=== PATIENT | male | born 1960 | race Caucasian/White ===

== ENCOUNTER 2018-08-03 03:08 | Emergency (ER) | payer OTHER ==
[~2018-08-03] VITALS: Ht 185.4 cm; Wt 80.3 kg
[~2018-08-03 03:08] MED LIST: IBUP400 PO; Percocet 5-3251 EACH PO
[2018-08-03] MEDS ORDERED: Norco 7.5-3251 EACH PO (03:14)
== END 2018-08-03 06:10 | disposition home or self-care (01) ==
LOC: ER 03:08
DX: M54.5 Low back pain (principal); F17.210 Nicotine dependence, cigarettes, uncomplicated; Z87.442 Personal history of urinary calculi; Z88.5 Allergy status to narcotic agent; Z91.030 Bee allergy status; Z79.899 Other long term (current) drug therapy
CPT/HCPCS: 72100; 96372; 99283-25; A9270-GY; J1170

== ENCOUNTER 2019-01-24 09:49 | Day surgery (SDC) | payer OTHER ==
[~2019-01-24] VITALS: Ht 188 cm; Wt 81.2 kg
[~2019-01-24 09:49] MED LIST changes: +ALBU90OI INH; +MONT10T PO; +Norco 7.5-3251 EACH PO
[2019-01-24] MEDS ORDERED: Neurontin400 MG (10:59)
== END 2019-01-24 14:00 | disposition home or self-care (01) ==
LOC: ORSCSDS 09:49
PROVIDERS: Surgery
PROC: 0DBK8ZX Excision of Ascending Colon, Via Natural or Artificial Opening Endoscopic, Diagnostic (ICD-10-PCS; principal; 2019-01-24 11:15)
PROC: 0DBL8ZX Excision of Transverse Colon, Via Natural or Artificial Opening Endoscopic, Diagnostic (ICD-10-PCS; principal; 2019-01-24 11:15)
PROC: 0DBH8ZX Excision of Cecum, Via Natural or Artificial Opening Endoscopic, Diagnostic (ICD-10-PCS; principal; 2019-01-24 11:15)
PROC: 0DBM8ZX Excision of Descending Colon, Via Natural or Artificial Opening Endoscopic, Diagnostic (ICD-10-PCS; principal; 2019-01-24 11:15)
PROC: 0DBP8ZX Excision of Rectum, Via Natural or Artificial Opening Endoscopic, Diagnostic (ICD-10-PCS; principal; 2019-01-24 11:15)
DX: Z85.038 Personal history of other malignant neoplasm of large intestine (principal); D12.8 Benign neoplasm of rectum; D12.2 Benign neoplasm of ascending colon; D12.0 Benign neoplasm of cecum; D12.3 Benign neoplasm of transverse colon; D12.4 Benign neoplasm of descending colon; Z87.891 Personal history of nicotine dependence; Z79.899 Other long term (current) drug therapy
CPT/HCPCS: 88305; J2704; J7120

== ENCOUNTER → 2020-04-30 | Outpatient (CLI) | payer OTHER ==
[~2020-04-30] MED LIST changes: +Neurontin400 MG
== END ==
LOC: PLD 07:57 → LAB SHORT 07:57
DX: C44.311 Basal cell carcinoma of skin of nose (principal)
CPT/HCPCS: 88305

== ENCOUNTER 2021-01-08 19:59 | Emergency (ER) | payer OTHER ==
[~2021-01-08] VITALS: Ht 185.4 cm; Wt 83.9 kg
[2021-01-08] MEDS ORDERED: Cymbalta20 MG (20:43)
== END 2021-01-08 22:50 | disposition home or self-care (01) ==
LOC: ER 19:59
DX: S06.9X1A Unspecified intracranial injury with loss of consciousness of 30 minutes or less, initial encounter (principal); S50.312A Abrasion of left elbow, initial encounter; T14.8XXA Other injury of unspecified body region, initial encounter; M79.642 Pain in left hand; F17.210 Nicotine dependence, cigarettes, uncomplicated; Z91.030 Bee allergy status; Z88.5 Allergy status to narcotic agent; Z79.899 Other long term (current) drug therapy; W22.8XXA Striking against or struck by other objects, initial encounter
CPT/HCPCS: 70450; 90471; 90714; 93005; 93010; 96374-59; 99284-25; A9270; J1885

== ENCOUNTER → 2023-04-27 | Outpatient (CLI) | payer OTHER ==
[~2023-04-27] MED LIST changes: +Cymbalta20 MG
== END ==
LOC: LAB 12:47 → LAB SHORT 12:47
DX: L21.8 Other seborrheic dermatitis (principal); L08.9 Local infection of the skin and subcutaneous tissue, unspecified
CPT/HCPCS: 87070; 87077; 87186; 87205

== ENCOUNTER 2024-11-09 18:19 | Inpatient (IN) | payer MEDICARE, OTHER ==
[~2024-11-09] VITALS: Ht 182.9 cm; Wt 98.7 kg
[~2024-11-09 18:19] MED LIST changes: +ATOR40TA PO; +B-121000 MC7 PO; +FOLI1 PO; +GABA300 PO; +LIDO700A20 TOP; +LOSA25 PO; +NAPR500 PO
[2024-11-09] MEDS ORDERED: NS 1,000 ML IV SCH ×3 (18:30→23:10)
[2024-11-09] MEDS ORDERED: Piperacillin/Tazobactam Sod 4.5 GM in NS 100 ML IV ONE (18:45)
[2024-11-09] MEDS ORDERED: Vancomycin (Pharmacy Consult) IV PRN (18:45)
[2024-11-09 18:49] LABS: Hematocrit 49.8 % (37.0-53.0); Hemoglobin 16.3 g/dL (13.5-17.5); Mean Corpuscular HGB Conc 32.7 g/dL (31.5-36.5); Mean Corpuscular Volume 101 fL (80-100); NRBC ABSOLUTE 0.08 K/mm3 (0.00-0.02); NRBC Auto 0.7 /100 WBC (0.0-0.2); Platelet Count 76 K/mm3 (150-400); RDW Coefficient Variation 14.2 % (11.7-14.2); RDW Standard Deviation 53.8 fL (35.1-46.3)
[2024-11-09 19:27] LABS: BASOPHILS ABSOLUTE MAN 0.00 K/mm3 (0.00-0.23); BASOPHILS PERCENT MAN 0 % (0-2); EOSINOPHILS ABSOLUTE MAN 0.00 K/mm3 (0.00-0.68); EOSINOPHILS PERCENT MAN 0 % (0-6); LYMPHOCYTES ABSOLUTE MAN 1.19 K/mm3 (0.84-5.20); LYMPHOCYTES PERCENT MAN 10 % (21-46); MONOCYTES ABSOLUTE MAN 0.59 K/mm3 (0.16-1.47); MONOCYTES PERCENT MAN 5 % (4-13); NEUTROPHILS ABSOLUTE MAN 10.11 K/mm3 (1.96-9.15); SEG NEUTROPHILS PERCENT MAN 85 % (41-73)
[2024-11-09 19:29] LABS: Ethanol (Alcohol), Blood, Med <3 mg/dL; Magnesium, Blood 2.6 mg/dL (1.6-2.4); Salicylate <1.7 mg/dL (2.8-20.0); Thyroid Stimulating Hormone 0.735 uIU/mL (0.360-4.800)
[2024-11-09 19:31] LABS: Acetaminophen, Random <2.0 ug/mL (10.0-30.0); Alanine Aminotransfer (ALT/SGP 295 U/L (12-78); Albumin, Blood 2.5 g/dL (3.4-5.0); Albumin/Globulin Ratio 0.6 (0.8-1.8); Anion Gap 25 mmol/L (3-11); Aspartate Aminotrans (AST/SGOT 1002 U/L (12-37); Bilirubin, Total 1.7 mg/dL (0.1-1.0); Blood Urea Nitrogen 82 mg/dL (8-24); CO2, Blood 17 mmol/L (21-32); Calcium, Blood 6.9 mg/dL (8.5-10.1); Chloride, Blood 100 mmol/L (98-108); Creatinine, Blood 12.00 mg/dL (0.60-1.20); Globulin, Blood 3.9 g/dL (2.2-4.0); Glucose, Blood 118 mg/dL (70-99); Potassium, Blood 5.1 mmol/L (3.5-5.5); Sodium, Blood 137 mmol/L (136-145); Total Protein, Blood 6.4 g/dL (6.4-8.2)
[2024-11-09] MEDS ORDERED: METO25ER PO (20:41)
[2024-11-09] MEDS ORDERED: TRELEGY ELLIPT1 EAC1 (20:42)
[2024-11-09] MEDS ORDERED: LOSA25 PO (20:42)
[2024-11-09] MEDS ORDERED: ATOR80 PO (20:42)
[2024-11-09] MEDS ORDERED: ALBU90OI INH (20:42)
[2024-11-09] MEDS ORDERED: NS 1,000 ML IV ONE (21:23)
[2024-11-09 21:57] LABS: pH Blood Venous 7.19 (7.34-7.37)
[2024-11-09 22:30] VITALS: BP 79/59
[2024-11-09] MEDS ORDERED: Sodium Bicarb 8.4% Inj 100 MEQ in Sodium Chloride 0.45% 1,000 ML IV SCH (22:35)
--- NOTE | 2024-11-09 22:40 | NUR ---
ED ADMIT, ASSUMPTION OF CARE RECEIVED PT VIA GURNEY FROM ED, TRANSFERRED TO ICU BED, MONITORS PLACED. LEVO GTT AT 20MCG (SEE FLOWSHEET). PT WITHDRAWS AND GRIMACES TO PAIN WITH OCC MOANS WHILE REPOSITIONING. VSS AT THIS TIME. SEE ADMISSION ASSESSMENT FOR FURTHER DETAILS.
[2024-11-09 23:00] VITALS: BP 110/83
[2024-11-09] MEDS ORDERED: Vasopressin 20 UNITS in NS 100 ML IV SCH (23:00)
[2024-11-09] MEDS ORDERED: Vancomycin (Pharmacy Consult) IV SCH (23:05)
[2024-11-09 23:30] VITALS: BP 104/75
[2024-11-09 23:45] VITALS: BP 132/112
[2024-11-09 23:48] VITALS: BP 132/112
[2024-11-10] VITALS (92 sets, daily range): BP systolic 69–139; BP diastolic 42–92
--- NOTE | 2024-11-10 00:15 | NUR ---
BELONGINGS CELL PHONE, WATCH AND MEDS SENT HOME WITH SISTER.
[2024-11-10 00:25] LABS: pH Blood Venous 7.21 (7.34-7.37)
--- NOTE | 2024-11-10 00:25 | NUR ---
LAB NOTIFICATION NOTIFIED BY RT V[facility] PH [phone], IMPROVING
[2024-11-10] MEDS ORDERED: Sodium Bicarb 8.4% 1 MEQ/ML 50 ML Vial IV ONE (00:55)
[2024-11-10] MEDS ORDERED: Albumin (Human) 25gm/100ml 100 ML IV ONE (00:55)
[2024-11-10] MEDS ORDERED: Naloxone HCl 0.4MG / ML 1ML Vial IV ONE (01:00)
[2024-11-10] MEDS ORDERED: Sodium Bicarb 8.4% 50 mEq Syringe IV ONE (01:00)
[2024-11-10 01:07] LABS: Prothrombin Time Results 13.2 Sec (9.7-11.5)
[2024-11-10 04:43] LABS: Hematocrit 44.9 % (37.0-53.0); Hemoglobin 14.6 g/dL (13.5-17.5); Mean Corpuscular HGB Conc 32.5 g/dL (31.5-36.5); Mean Corpuscular Volume 101 fL (80-100); NRBC ABSOLUTE 0.10 K/mm3 (0.00-0.02); NRBC Auto 0.8 /100 WBC (0.0-0.2); Platelet Count 67 K/mm3 (150-400); RDW Coefficient Variation 14.2 % (11.7-14.2); RDW Standard Deviation 52.6 fL (35.1-46.3)
[2024-11-10] MEDS ORDERED: TRELEGY ELLIPT1 EAC1 IH (05:04)
[2024-11-10 05:19] LABS: Source, Urine Clean Catch
[2024-11-10 05:23] LABS: BAND PERCENT MAN 20 % (0-8); BASOPHILS ABSOLUTE MAN 0.00 K/mm3 (0.00-0.23); BASOPHILS PERCENT MAN 0 % (0-2); EOSINOPHILS ABSOLUTE MAN 0.00 K/mm3 (0.00-0.68); EOSINOPHILS PERCENT MAN 0 % (0-6); Influenza A, PCR NEGATIVE (NEGATIVE); Influenza B, PCR NEGATIVE (NEGATIVE); LYMPHOCYTES ABSOLUTE MAN 1.69 K/mm3 (0.84-5.20); LYMPHOCYTES PERCENT MAN 13 % (21-46); METAMYELOCYTE ABSOLUTE MAN 0.26 K/mm3 (0.00-0.00); METAMYELOCYTE PERCENT MAN 2 % (0-0); MONOCYTES ABSOLUTE MAN 2.34 K/mm3 (0.16-1.47); MONOCYTES PERCENT MAN 18 % (4-13); MYELOCYTE ABSOLUTE MAN 0.26 K/mm3 (0.00-0.00); MYELOCYTE PERCENT MAN 2 % (0-0); NEUTROPHILS ABSOLUTE MAN 8.45 K/mm3 (1.96-9.15); Resp Syncytial Virus, PCR NEGATIVE (NEGATIVE); SARS-Cov-2 (COVID-19) PCR, MMC NEGATIVE (NEGATIVE); SEG NEUTROPHILS PERCENT MAN 45 % (41-73)
[2024-11-10 05:25] LABS: Color, Urine Amber (P-Yellow); Glucose Qualitative, Urine 1+ (Neg); Ketones, Urine 1+ (Neg); Leukocyte Esterase, Urine 2+ (Neg); Protein, Urine 3+ (Neg); Specific Gravity, Urine 1.025 (1.003-1.022); Urobilinogen, Urine 1+ (Normal)
[2024-11-10 05:27] LABS: Alanine Aminotransfer (ALT/SGP 284.0 U/L (12-78); Albumin, Blood 2.9 g/dL (3.4-5.0); Albumin/Globulin Ratio 1.0 (0.8-1.8); Anion Gap 21.0 mmol/L (3-11); Aspartate Aminotrans (AST/SGOT 1284.0 U/L (12-37); Bilirubin, Total 1.5 mg/dL (0.1-1.0); Blood Urea Nitrogen 91.0 mg/dL (8-24); CO2, Blood 18.0 mmol/L (21-32); Calcium, Blood 5.9 mg/dL (8.5-10.1); Chloride, Blood 102.0 mmol/L (98-108); Creatinine, Blood 11.3 mg/dL (0.60-1.20); Globulin, Blood 3.0 g/dL (2.2-4.0); Glucose, Blood 161.0 mg/dL (70-99); Potassium, Blood 5.2 mmol/L (3.5-5.5); Sodium, Blood 136.0 mmol/L (136-145); Total Protein, Blood 5.9 g/dL (6.4-8.2)
[2024-11-10] MEDS ORDERED: CALCIUM GLUC IN NACL, ISO-OSM 50 ML IV ONE (05:45)
[2024-11-10 06:01] LABS: Bilirubin, Urine 1+ (Neg)
[2024-11-10 06:04] LABS: U Amphetamine Screen Not Detected; U Barbituate Screen Not Detected; U Benzodiazapine Screen Not Detected; U Buprenorphine Screen Not Detected; U Cannabinoids Screen Not Detected; U Cocaine Screen Not Detected; U Methadone Screen Not Detected; U Methamphetamine Screen Not Detected; U Opiates Screen Not Detected; U Oxycodone Screen Not Detected; U Phencyclidine Screen Not Detected
--- NOTE | 2024-11-10 06:39 | NUR ---
SHIFT SUMMARY RECEIVED PT FROM ED LAST NIGHT AT 2235. WITHDRAWING/GRIMACING TO PAIN ONLY, WITH THE OCCAS MOAN WITH REPOSITIONING. MORE RESPONSIVE THIS AM, SAYING "OW, THAT HURTS" WITH LAST REPOSITIONING. PT FOUND DOWN AT HOME FOR UNKNOWN AMOUNT OF TIME AND HAS MULT PRESSURE RELATED INJURIES, SCATTERED ECCHYMOSIS AND PETECHIAE. WOUND PHOTOS TAKEN AND ARE IN CHART. FOAM DRSGS PLACED ON COCCYX, UPPER BACK AND BILAT HEELS. LEVO GTT AT 16 MCG CURRENTLY. VASOPRESSIN AT 0.04, BICARB AT 125ML/HR. CALCIUM GLUCONATE ORDERED FOR LOW CA AND IS INFUSING. DIFFICULTY OBTAINING SPO2 T/O NIGHT, OCCASIONALLY PICKING ONE UP. VERY DUSKY/MOTTLED, PULSES VERY FAINT/THREADY. SISTER WAS PRESENT AFTER ADMIT AND WAS ABLE TO ASSIST WITH ADMIT INFO. SHE TOOK BELONGINGS HOME. DR ZAMAN UPDATED T/O SHIFT WITH STATUS CHANGES AND CRITICAL VALUES. WILL UPDATE DAY RN WITH ALL OUTSTANDING ISSUES AND PROBLEMS TO DATE.
[2024-11-10] MEDS ORDERED: NS 250 ML IV PRN (07:50)
[2024-11-10] MEDS ORDERED: ZINC OXIDE/PETROLATUM, YELLOW 1 APPLIC/71 GM PASTE TOP PRN (07:50)
[2024-11-10] MEDS ORDERED: Cefepime HCl 1,000 MG in NS 100 ML IV SCH (09:00)
[2024-11-10] MEDS ORDERED: Heparin Sodium,Porcine 5,000 UNIT/0.5 ML SDV SC SCH (09:00)
[2024-11-10] MEDS ORDERED: Sodium Bicarb 8.4% Inj 150 MEQ in Dextrose 5% 1,000 ML IV SCH (15:00)
[2024-11-10] MEDS ORDERED: Vasopressin 20 UNITS in NS 100 ML IV SCH (15:15)
--- NOTE | 2024-11-10 17:55 | NUR ---
SHIFT SUMMARY NO ACUTE CHANGES THIS SHIFT. PT REMAINS SOMNOLENT. PT MOANS OUT AND ATTEMPTS TO SPEAK SOME WORDS TO NOXIOUS STIMULI OR CARE. PT ON 4L O2 NC. VITAL SIGNS STABLE WITH LEVOPHED INFUSING AT 10 MCG/MIN AND VASOPRESSIN AT 0.04 UNITS/MIN. BICARB INFUSING AT 125 ML/HR AND NS TKO. CENTRAL LINE TO RIJ C/D/I. GARRISON IN PLACE WITH 50 ML URINE OUTPUT THIS SHIFT. DR SHAW AWARE. WOUNDS/BRUISES UNCHANGED. PT SISTER AT BEDSIDE FOR SHORT TIME THIS AFTERNOON, UPDATED TO PT CONDITION AND PLAN OF CARE. WILL CONTINUE TO MONITOR AND REPORT OFF TO ONCOMING RN.
[2024-11-10 19:36] LABS: Anion Gap 20 mmol/L (3-11); Blood Urea Nitrogen 101 mg/dL (8-24); CO2, Blood 21 mmol/L (21-32); Calcium, Blood 5.7 mg/dL (8.5-10.1); Chloride, Blood 102 mmol/L (98-108); Creatinine, Blood 11.40 mg/dL (0.60-1.20); Glucose, Blood 177 mg/dL (70-99); Potassium, Blood 4.8 mmol/L (3.5-5.5); Sodium, Blood 138 mmol/L (136-145); Vancomycin, Random 20.9 ug/mL
[2024-11-10] MEDS ORDERED: Calcium Chloride 10% 2,000 MG in NS 100 ML IV ONE (20:40)
[2024-11-11] VITALS (93 sets, daily range): BP systolic 72–142; BP diastolic 58–109
[2024-11-11 05:33] LABS: Hematocrit 40.0 % (37.0-53.0); Hemoglobin 13.1 g/dL (13.5-17.5); Mean Corpuscular HGB Conc 32.8 g/dL (31.5-36.5); Mean Corpuscular Volume 100 fL (80-100); NRBC ABSOLUTE 0.06 K/mm3 (0.00-0.02); NRBC Auto 0.6 /100 WBC (0.0-0.2); RDW Coefficient Variation 14.1 % (11.7-14.2); RDW Standard Deviation 51.7 fL (35.1-46.3)
[2024-11-11 05:51] LABS: Platelet Count 38 K/mm3 (150-400)
[2024-11-11 05:55] LABS: Magnesium, Blood 2.3 mg/dL (1.6-2.4)
[2024-11-11 05:57] LABS: Albumin, Blood 2.2 g/dL (3.4-5.0); Anion Gap 15 mmol/L (3-11); Blood Urea Nitrogen 105 mg/dL (8-24); CO2, Blood 27 mmol/L (21-32); Calcium, Blood 6.3 mg/dL (8.5-10.1); Chloride, Blood 100 mmol/L (98-108); Glucose, Blood 171 mg/dL (70-99); Phosphorus, Blood 8.0 mg/dL (2.5-4.9); Potassium, Blood 3.9 mmol/L (3.5-5.5); Sodium, Blood 138 mmol/L (136-145)
[2024-11-11 06:08] LABS: Creatinine, Blood 10.90 mg/dL (0.60-1.20)
--- NOTE | 2024-11-11 06:14 | NUR ---
SHIFT SUMMERY PT HAS BEEN ABLE TO ANSWER SOME SIMPLE QUESTIONS INCONSISTANTLY, HE IS STILL QUITE LETHARGIC BUT DOES GRIMACE TO TACTILE STIMULI. HE REMAINS ON PRESSORS, SEE [facility]. GARRISON CATH INTACT PATENT AND DRAINGING SMALL AMOUNT OF CONCENTRATED URINE. PT IS ON 4LNC. OXYGEN SAT >92%. HE HAD A LARGE BM EARLIER, INCONTINENT. NO ACUTE CHANGES OVERNIGHT.
[2024-11-11 13:23] LABS: Vancomycin, Random 22.5 ug/mL
--- NOTE | 2024-11-11 17:44 | NUR ---
SHIFT SUMMARY NO ACUTE CHANGES THIS SHIFT. PT HAS BEEN RESTING QUIETLY MOST OF THIS SHIFT. PT AWAKENS BREIFLY DURING TURNS/CARE. PT MUMBLES SOME WORDS, BUT IS UNABLE TO ANSWER MOST QUESTIONS. PT ABLE TO SQUEEZE HANDS APPROPRIATELY. CENTRAL LINE TO RIJ REMAINS C/D/I. LEVOPHED INFUSING AT 4 MCG/MIN AND NS TKO. GARRISON TEMP PROBE REMAINS IN PLACE WITH SCANT AMOUNT OF DARK YELLOW URINE OUTPUT NOTED. WOUNDS REMAIN UNCHANGED. PT WITH INCONTINENT BM'S THIS SHIFT. VITAL SIGNS STABLE, PT ON 2L O2 NC. PT SISTERS MARTINA AND LURDES UPDATED VIA PHONE. WILL CONTINUE TO MONITOR AND REPORT OFF TO ONCOMING RN.
[2024-11-12] VITALS (81 sets, daily range): BP systolic 85–130; BP diastolic 60–88
--- NOTE | 2024-11-12 06:03 | NUR ---
SHIFT SUMMERY PT REMAINS LETHARGIC, RESPONDS TO VERBAL/TACTILE STIMULI. MUMBLES WORDS AT TIMES. HE REMAINS ON LEVOPHED TO MAINTAIN MAP >65, SEE [facility]. GARRISON CATH INTACT PATENT AND DRAINING A SMALL AMOUNT OF CONCENTRATED URINE. PT IS ON ROOM AIR W/OXYGEN SAT > 90%. SR-ST ON THE CARDAIC MONITOR. AFEBRILE. NO ACUTE CHANGES OVERNIGHT.
[2024-11-12 06:16] LABS: Phosphorus, Blood 7.9 mg/dL (2.5-4.9); Vancomycin, Random 20.0 ug/mL
[2024-11-12 07:00] LABS: Alanine Aminotransfer (ALT/SGP 197.0 U/L (12-78); Albumin, Blood 2.0 g/dL (3.4-5.0); Albumin/Globulin Ratio 0.6 (0.8-1.8); Anion Gap 15.0 mmol/L (3-11); Aspartate Aminotrans (AST/SGOT 631.0 U/L (12-37); Bilirubin, Total 0.8 mg/dL (0.1-1.0); Blood Urea Nitrogen 120.0 mg/dL (8-24); CO2, Blood 28.0 mmol/L (21-32); Chloride, Blood 102.0 mmol/L (98-108); Globulin, Blood 3.2 g/dL (2.2-4.0); Glucose, Blood 98.0 mg/dL (70-99); Potassium, Blood 3.9 mmol/L (3.5-5.5); Sodium, Blood 141.0 mmol/L (136-145); Total Protein, Blood 5.2 g/dL (6.4-8.2)
[2024-11-12 07:12] LABS: Calcium, Blood 5.8 mg/dL (8.5-10.1); Creatinine, Blood 11.8 mg/dL (0.60-1.20)
[2024-11-12] MEDS ORDERED: Calcium Chloride 10% 2,000 MG in NS 100 ML IV ONE (07:50)
--- NOTE | 2024-11-12 17:20 | NUR ---
RN called to bedside by family members who are reporting patient drooling. On assessment patient oriented to self and birthday, disoriented to time and place, PERRLA, RUE 2+ with some effort against gravity with sensation, LUE with sensation to pain but no muscle movement or effort against gravity. BLE able to follow commands and wiggle toes with sensation in each. Radial pulse in LUE able to be dopplered. Findings reported to MD George; orders given for stroke protocol CT. Patient taken to CT and awaiting results.
--- NOTE | 2024-11-12 18:40 | NUR ---
SHIFT SUMMARY: PT IS DOING WELL AND RESTING IN BED. THE DAY PROGRESSED, PT BECAME MORE ALERT AND WAS ABLE TO ANSWER THEIR NAME AND BIRTHDAY AND FOLLOW SIMPLE COMMANDS. PT WAS NOT ABLE TO MOVE LUE AND PT WAS TAKEN TO CT FOR IMAGING, STILL AWAITING RESULTS. PT ON RA WITH SPO2 >95%, SINUS RYTHM MAP >65 HR: 80-90'S. CENTERAL LINE IN RIJ. GARRISON CATHETER IN PLACE AND DRAINGING TO GRAVITY. LINES, CORDS, AND TUBES PLACED OUT OF REACH. CALL LIGHT PLACED WITHIN REACH.
[2024-11-13] VITALS (16 sets, daily range): BP systolic 98–125; BP diastolic 64–88
[2024-11-13 05:40] LABS: Vancomycin, Random 19.1 ug/mL
--- NOTE | 2024-11-13 06:35 | NUR ---
SHIFT SUMMARY: PT ALERT AND ORIENTED TO SELF ONLY-DOES ASK WHAT HAPPENED REPEATEDLY DESPITE HAVING BEEN TOLD. PT MAKES APPROPRIATE CONVERSATION (HAS MUMBLED SPEECH), CAN MAKE NEEDS KNOWN, AND COOPERATIVE W/CARE. SBP STABLE, 100-110S. HR 80-90S, SINUS. PT IS ON RA. SATS >90% WITH UNLABORED BREATHING. DENIES SOB. PT DENIED PAIN OR NEED FOR PAIN MEDS T/O SHIFT DESPITE RN ASKING MULTIPLE TIMES. PT NOTED TO HAVE DISCOMFORT W/TURNS DUE TO MULTIPLE WOUNDS T/O BACK AND BUTTOCKS (SEE CHART FOR PICTURES). WOUND DRESSINGS C/D/I. PT ABD SOFT, TENDER W/ BT HYPOACTIVE X4. GARRISON CATH REMAINS IN PLACE, PATENT, DRAINING TO GRAVITY. PT HAD MINIMAL URINE OUTPUT THIS SHIFT. PT HAD BM THIS SHIFT, SOFT/FORMED. FOR ACCESS, PT HAS RIJ. NO ACUTE CHANGES TO REPORT THIS SHIFT. THIS RN TO REPORT TO ONCOMING RN.
[2024-11-13 08:12] LABS: Hematocrit 39.0 % (37.0-53.0); Hemoglobin 12.8 g/dL (13.5-17.5)
[2024-11-13 08:17] LABS: Platelet Count 48 K/mm3 (150-400)
[2024-11-13 08:29] LABS: Anti-Xa UFH, PHA Monitoring <0.10 IU/mL; Prothrombin Time Results 11.9 Sec (9.7-11.5)
[2024-11-13 08:53] LABS: Anion Gap 17.0 mmol/L (3-11); Blood Urea Nitrogen 142.0 mg/dL (8-24); CO2, Blood 24.0 mmol/L (21-32); Calcium, Blood 6.1 mg/dL (8.5-10.1); Chloride, Blood 104.0 mmol/L (98-108); Creatinine, Blood 12.9 mg/dL (0.60-1.20); Glucose, Blood 91.0 mg/dL (70-99); Potassium, Blood 4.0 mmol/L (3.5-5.5); Sodium, Blood 141.0 mmol/L (136-145)
--- NOTE | 2024-11-13 09:03 | NUR ---
SHIFT ASSESSMENT ASSUMED CARE OF PT @ 0700, BEDSIDE REPORT RECEIVED FROM [facility] NURSE. PT RESTING IN BED, AWAKENS EASILY TO VERBAL STIMULI. ALERT TO SELF, DOES NOT RECALL EVENTS LEADING UP TO HOSPITAL STAY. FOLLOWS COMMANDS, TRACKS NURSE, ABLE TO COMMUNICATE NEEDS THOUGH DIFFICULT TO UNDERSTAND. PT UPDATED ON CURRENT CONDITION & KIDNEY FUNCTION. PT CONTINUES TO REFUSE DIALYSIS, PT IS AWARE OF RISKS. PT REMAINS NPO. GARRISON CATH DRAINING SMALL AMNT OF JORJE URINE. NO BM THIS AM.
[2024-11-13] MEDS ORDERED: Heparin Sodium,Porcine/0.5 NS 500 ML IV SCH (09:20)
--- NOTE | 2024-11-13 12:15 | NUR ---
MEET AND GREET WITH PT, HIS SISTERS LURDES AND MARTINA WELL A COUSIN. SISTER DEXTER REPORTS CONCERNS RE: DISCHARGE PLANNING AND GOALS OF CARE. THIS PC RN REACHED OUT TO KATEY POSADA. LEFT MESSAGE FOR PROVIDER WITH GOAL TO MEET IN PT ROOM THIS AFTERNOON AT 1400. UPDATE PROVIDED TO PRIMARY RN AND CM.
--- NOTE | 2024-11-13 16:15 | NUR ---
GOALS OF CARE CONVERSATION WITH PT, HIS SISTERS AND COUSIN. PT RESTING WITH EYES CLOSED MAJORITY OF VISIT. WHEN TALKING ABOUT PT, PT'S LEFT FOOT BOUNCES. HE STOPS SHAKING HIS FOOT WHEN SPOKEN TO DIRECTLY. THIS PC RN PROVIDED BOTH SISTERS, LURDES AND MARTINA WITH A PHOTO COPY OF ED'S PREVIOUSLY SIGNED POLST FORM THAT REFLECTS DNR/CLEARING SUPERVISOR. BOTH SISTERS WERE ALREADY IN AGREEMENT TO WITHDRAWL CURRATIVE CARE AND SHIFT FOCUS OF CARE TO COMFORT AND QUALITY OF LIFE. WHEN ASKED ABOUT COMFORT AND STOPPING BP, LABS ECT, ED STATED, "SOUNDS GOOD". ED RESPONDED SLOWLY WITH 1-2 WORD ANSWERS IN A MUMBLED TONE. REVIEWED CASE WITH PROVIDER THIS AFTERNOON. PROVIDER TO PLACE ORDERS. UPDATE PROVIDED TO PRIMARY RN. JOINT VISIT WITH KATEY POSADA. PC TO REMAIN AVAILABLE NEEDED.
[2024-11-13] MEDS ORDERED: FentaNYL Citrate 50 MCG/ML 2 ML Injection IV PRN (16:30)
--- NOTE | 2024-11-13 18:22 | NUR ---
SHIFT SUMMARY PT NOW COMFORT CARE. PT ALERT TO SELF AND SITUATION, FOLLOWING SIMPLE COMMANDS. CONTINUES TO REFUSE MOST CARE. EDUCATED PT OF THE NEED TO TURN, BATH, ETC, BUT PT RESPONDS WITH "LEAVE ME ALONE". PT DID ASK FOR WATER, TOLERATED SMALL SIPS. FAMILY UPDATED AT BEDSIDE.
[2024-11-14 05:02] VITALS: BP 120/76
--- NOTE | 2024-11-14 06:25 | NUR ---
SHIFT SUMMARY: PT HAD NO ACUTE CHANGES T/O THE NIGHT. HE REMAINS ORIENTED TO SELF ONLY. CAN COMMUNICATE APPROPRIATELY W/STAFF AND COOPERATIVE W/CARE. PT CONTINUES TO HAVE MUMBLED SPEECH. PT CONTINUES TO BE ON RA. SATS >90%, BREATHING EVEN AND UNLABORED. PT DENIES SOB. SBP STABLE. HR 80S-LOW 100S, SINUS. BT HYPOACTIVE X4. GARRISON REMAINS IN PLACE,PATENT, W/MINIMAL OUTPUT. PT CONTINUES TO BE VERY PAINFUL W/ ANY TURNS-MEDICATED PER ORDERS, SEE EMAR. CENTRAL LINE IN RIJ W/NOTHING INFUSING AT THIS TIME. THIS RN TO REPORT TO ONCOMING RN.
--- NOTE | 2024-11-14 15:46 | NUR ---
TRANSFER TO [facility] FLOOR 301.
--- NOTE | 2024-11-14 15:54 | NUR ---
TRANSFER NOTE PT TRANSFER FROM ICU, REPORT RECEVIED FROM ICU NURSE. PT REPOSITIONED AND CLEANED UP UPON ARRIVAL.
--- NOTE | 2024-11-14 16:55 | NUR ---
SHIFT SUMMARY PT AOX1, SELF. RESPONDS TO VERBAL STIMULI, PLEASANT. HAS SLEPT MOST OF THE SHIFT SINCE THE TRANSFER. DENIES PAIN AT THIS TIME. REPOSITIONED SINCE THE TRANSFER AND Q2. GARRISON PATENT AND DRAINING, DARK JORJE URINE. APPEARS TO BE RESTING COMFORTABLY. CALL LIGHT WITHIN REACH, BED LOCKED AND IN THE LOWEST POSITION. WILL REPORT TO ONCOMING NURSE.
[2024-11-14] MEDS ORDERED: FentaNYL Citrate 50 MCG/ML 2 ML Injection IV PRN (20:40)
--- NOTE | 2024-11-15 04:01 | NUR ---
SHIFT SUMMARY: PT MEDICATED PER EMAR. NO ACUTE CHANGES THIS SHIFT. PT Q2 TURNED FOR COMFORT AND PREVENTION OF WOUNDS. PT SLEEPING MOST OF SHIFT.
[2024-11-15] MEDS ORDERED: OxyCODONE HCL 1 MG/ML 5MLUDC SL PRN (10:10)
--- NOTE | 2024-11-15 16:46 | NUR ---
SPOKE WITH PT'S FAMILY REGARDING THE MORPHINE ALLERGY. THEY ARE AGREEABLE TO ATTEMPT ROXANOL, THE MORPHINE ALLERGY IS LIKELY NOT A TRUE ALLERGY. DR. SHAW AGREEABLE. BEDSIDE RN WILL MONITOR FOR ANY N/V.
[2024-11-15] MEDS ORDERED: Morphine Sulfate 20 MG/1ML 1 ML Oral Syringe SL PRN (16:55)
--- NOTE | 2024-11-15 17:21 | NUR ---
SHIFT SUMMARY PT AO TO SELF, SLEPT MOST OF THE SHIFT. MEDICATED FOR PAIN AND ANXIETY PER THE EMAR. REPOSITIONED THROUGHOUT THE SHIFT. PT RESPONDS TO MOSTLY PAIN BUT AT TIMES VERBAL STIMULI. FAMILY AT THE BS THROUGHOUT THE SHIFT. PALLIATIVE ALSO AT THE BS. POSSIBLE PLACEMENT IN LAURYS STATIONJaylin GARRISON IN PLACE, LOW OUTPUT. CALL LIGHT WITHIN REACH, BED IN THE LOWEST POSITION, WILL REPORT TO ONCOMING NURSE.
[2024-11-15 17:36] LABS: CK TOTAL 26092 U/L (39-308); CK-BB 0 % (0-0); CK-MACRO TYPE I 0 % (0-0); CK-MACRO TYPE II 0 % (0-0); CK-MB 0 % (0-4); CK-MM 100 % (96-100)
--- NOTE | 2024-11-16 03:46 | NUR ---
SHIFT SUMMARY: PT IS AOX 1 TO SELF ONLY. VERY MUMBLED SPEECH. PT REPOSITIONED Q2 THROUGH OUT SHIFT. MEDICATED FOR PAIN AND ANXIETY PER EMAR. PT SLEEPING BUT ARROUSABLE. GARRISON PLACED AND DRAINING BELOW THE BLADDER TO GRAVITY. URINE IS TEA COLORED. BED ALARM ON FOR SAFETY. BED IN LOWEST POSITION AND CALL LIGHT IN REACH.
--- NOTE | 2024-11-16 11:25 | NUR ---
NOTE: SPOKE WITH PT'S SISTER, LURDES, AND UPDATED HER ON THE PT'S STATUS.
--- NOTE | 2024-11-16 17:34 | NUR ---
SHIFT SUMMARY PT MOSTLY UNRESPONSIVE THIS SHIFT, RESPIRATION IRREGULAR AND SHALLOW. MEDICATED FOR COMFORT PER THE EMAR. FAMILY AT THE BS TODAY. REPOSITIONED Q2 HOURS. GARRISON IN PLACE AND DRAINING MINIMAL URINE. PT APPEARS COMFORTABLE. CALL LIGHT WITHIN REACH, BED LOCKED AND IN THE LOWEST POSITION. WILL REPORT TO ONCOMING NURSE.
--- NOTE | 2024-11-17 06:45 | NUR ---
SHIFT SUMMARY PT MOSTLY UNRESPONSIVE BUT WILL OCCASIONALLY NOD HEAD OR FAINTLY RESPOND TO YES/NO QUESTIONS. RESPIRATIONS MORE IRREGULAR DURING THE NIGHT. NO PO INTAKE DURING THE NIGHT. MOUTH CARE PRN. SCANT AMOURNT OF URINE IN GARRISON. REPOSITIONED Q2. CALM MUSIC ON DURING THE NIGHT. BED IN LOWEST POSITION AND CALL LIGHT IN REACH.
--- NOTE | 2024-11-17 14:13 | NUR ---
ROUNDED ON PT. HE IS ACTIVLY TRANSITIONING. DISCUSSED WITH OVERCOIL STEPPER. PATIENT IS UNSTABLE TO BE TRANSFERED AT THIS TIME.
--- NOTE | 2024-11-17 18:01 | NUR ---
SHIFT SUMMARY PT CONT WITH COMFORT MEASURES. PT NOTED TO BE MOSTLY UNRESPONSIVE AND NOTED TO OCCOSIONALLY RESPOND TO PAIN. PT HAS BEEN MEDICATED WITH PRN ROXANOL SEE MAR FOR DETAILS. PT NOTED TO HAVE UNEVEN RESPIRATION THIS SHIFT AND PAUSES IN HIS BREATHING. PT HAD FAMILY AT BEDSIDE THIS SHIFT AND UPDATES WERE GIVEN. PT CONT WITH GARRISON WITH SCANT AMOUT OF OUTPUT NOTED. PT HAS NOT HAD ANY PO INTAKE THIS SHIFT.
--- NOTE | 2024-11-18 04:08 | NUR ---
PATIENT PRONOUNCED AT 0351. CONFIRMED BY SECOND RN, ASHWINI. PATIENT DID NOT HAVE HEARTBEAT OR RESPIRATIONS. DR. SORIA NOTIFIED AT 0356. SISTER MARTINA NOTIFIED AT 0400.
--- NOTE | 2024-11-18 05:51 | NUR ---
[facility] ([phone]) CALLED AT 0545. PER SISTER, MARTINA, THIS IS THE FACILITY THEY WOULD LIKE HIS BODY TO GO TO. RN NOTIFIED FACILITY OF PATIENTS . ROOM NUMBER PROVIDED.
--- NOTE | 2024-11-18 06:36 | NUR ---
PT PICKED UP BY ZAIDA DanielsAT [id number]. RN NOTIFIED SISTER, MARTINA AT 0638 VIA TELEPHONE.
== END 2024-11-18 03:51 | DRG 64 ==
LOC: ER 18:19 → ICUE 21:35 → MEDS 21:35 → ICUE 22:35 → MEDS 11-14 15:42
PROVIDERS: Family Medicine; Internal Medicine; Internal Medicine Nephrology; Nurse Practitioner Acute Care; Student in an Organized Health Care Education/Training Program; ADMIT Internal Medicine
PROC: 02HV33Z Insertion of Infusion Device into Superior Vena Cava, Percutaneous Approach (ICD-10-PCS; principal; 2024-11-09)
PROC: B548ZZA Ultrasonography of Superior Vena Cava, Guidance (ICD-10-PCS; principal; 2024-11-09)
PROC: 3E043XZ Introduction of Vasopressor into Central Vein, Percutaneous Approach (ICD-10-PCS; principal; 2024-11-09)
PROC: 3E03329 Introduction of Other Anti-infective into Peripheral Vein, Percutaneous Approach (ICD-10-PCS; principal; 2024-11-09)
PROC: 0T9B70Z Drainage of Bladder with Drainage Device, Via Natural or Artificial Opening (ICD-10-PCS; 2024-11-09)
DX: I63.40 Cerebral infarction due to embolism of unspecified cerebral artery (principal); G92.8 Other toxic encephalopathy; I21.4 Non-ST elevation (NSTEMI) myocardial infarction; N17.9 Acute kidney failure, unspecified; E87.20 Acidosis, unspecified; M62.82 Rhabdomyolysis; N39.0 Urinary tract infection, site not specified; R57.9 Shock, unspecified; Z66 Do not resuscitate; Z51.5 Encounter for palliative care; J43.9 Emphysema, unspecified; F17.210 Nicotine dependence, cigarettes, uncomplicated; H55.00 Unspecified nystagmus; E86.0 Dehydration; E80.6 Other disorders of bilirubin metabolism; E78.5 Hyperlipidemia, unspecified; F10.10 Alcohol abuse, uncomplicated; I73.9 Peripheral vascular disease, unspecified; L89.159 Pressure ulcer of sacral region, unspecified stage; L89.109 Pressure ulcer of unspecified part of back, unspecified stage; E83.51 Hypocalcemia; E83.39 Other disorders of phosphorus metabolism; I12.9 Hypertensive chronic kidney disease with stage 1 through stage 4 chronic kidney disease, or unspecified chronic kidney disease; N18.9 Chronic kidney disease, unspecified; G83.24 Monoplegia of upper limb affecting left nondominant side; R54 Age-related physical debility; Z91.038 Other insect allergy status; Z91.030 Bee allergy status; Z88.5 Allergy status to narcotic agent; Z91.018 Allergy to other foods; Z87.442 Personal history of urinary calculi; Z85.038 Personal history of other malignant neoplasm of large intestine; Z90.49 Acquired absence of other specified parts of digestive tract; Z95.828 Presence of other vascular implants and grafts; Z79.51 Long term (current) use of inhaled steroids; Z68.28 Body mass index [BMI] 28.0-28.9, adult; Z79.891 Long term (current) use of opiate analgesic; Z79.899 Other long term (current) drug therapy
CPT/HCPCS: 36415; 36556; 51702; 70450; 71045; 71260; 72125; 74177; 80048; 80053; 80069; 80202; 80320; 81001; 82140; 82330; 82550; 82552; 82803; 82947; 83605; 83690; 83735; 83880; 84100; 84439; 84443; 84484; 85014; 85018; 85025; 85027; 85049; 85520; 85610; 85730; 87040; 87077; 87086; 87637; 93005; 93010; 93306; 94762; 96365-59; 96366-59; 96368; 99285-25; A9270; C1751; G0480; J0612; J0692; J1644; J2310; J2543; J3010; J3373; J3411; J7030; J7040; J7050; J7070; J7120; P9047; Q9967